=== PATIENT | female | born 1955 | race Caucasian/White ===

== ENCOUNTER → 2020-11-01 | Day surgery (SDC) | payer OTHER ==
[~2020-11-01] MED LIST: BREO ELLIPTA 11 EACH INH; COMBIVENT RESPIM4 GM INH; CRESTOR5 MG PO; DICLO GEL 1%-X1 EACH TOP; EZETIMIBE10 MG PO; FENOFIBRATE54 MG PO; FLONASE ALLER15.8 ML; GABAPENTIN600 MG PO; LEVOTHYROXINE200 MC1 PO; MONTELUKAST SOD10 MG PO; NORCO 10-325 T1 EACH PO; NORCO 5-325 TA1 EACH PO; ONDANSETRON ODT8 MG PO; SYNTHROID200 MCG PO; VITAMIN D32000 UNI1 PO
[2020-11-01 08:33] LABS: HCT 40.3 % (37.0-47.0); HGB 13.5 g/dl (12.5-16.0); MCH 29.2 pg (25.0-31.0); MCHC 33.5 g/dL (32.0-36.0); MCV 87.2 fL (78.0-100.0); MPV 10.1 fL (6.0-9.5); RBC 4.62 M/uL (4.20-5.40); WBC 5.8 K/uL (4.0-10.5)
[2020-11-01 08:41] LABS: ALBUMIN 3.9 g/dL (3.4-5.0); BILIRUBIN - TOTAL 0.7 mg/dL (0.2-1.0); CREATININE 0.61 mg/dL (0.51-0.95); GLOBULIN (CALCULATION) 4.1 g/dL; POTASSIUM 4.1 mmol/L (3.5-5.1)
== END | disposition home or self-care (01) ==
LOC: FAS 07:01
PROVIDERS: Surgery
DX: K81.1 Chronic cholecystitis (principal); K74.60 Unspecified cirrhosis of liver; K75.81 Nonalcoholic steatohepatitis (NASH); K82.0 Obstruction of gallbladder; K82.8 Other specified diseases of gallbladder; I25.10 Atherosclerotic heart disease of native coronary artery without angina pectoris; J44.9 Chronic obstructive pulmonary disease, unspecified; E78.5 Hyperlipidemia, unspecified; I10 Essential (primary) hypertension; K21.9 Gastro-esophageal reflux disease without esophagitis; E11.9 Type 2 diabetes mellitus without complications; F41.9 Anxiety disorder, unspecified; M19.90 Unspecified osteoarthritis, unspecified site; F32.9 Major depressive disorder, single episode, unspecified; M81.0 Age-related osteoporosis without current pathological fracture; G47.30 Sleep apnea, unspecified; E03.9 Hypothyroidism, unspecified; F17.210 Nicotine dependence, cigarettes, uncomplicated; Z99.89 Dependence on other enabling machines and devices; Z79.899 Other long term (current) drug therapy
CPT/HCPCS: 36415; 80053; 93005; C1758; J1170; J2250; J2405; J2704; J2710; J3010; J7120; Q9967

== ENCOUNTER 2021-02-09 09:53 | Emergency (ER) | payer OTHER ==
[2021-02-09 10:20] LABS: BASOPHIL 0.8 % (0-2); EOSINOPHIL 2.3 % (0-5); HCT 42.7 % (37.0-47.0); HGB 14.2 g/dl (12.5-16.0); LYMPHOCYTE 17.4 % (15-48); MCH 29.5 pg (25.0-31.0); MCHC 33.3 g/dL (32.0-36.0); MCV 88.8 fL (78.0-100.0); MONOCYTE 6.8 % (0-12); NEUTROPHIL 72.4 % (41-80); NRBC 0; PLT 182 K/uL (150-400); RBC 4.81 M/uL (4.20-5.40); RDW 14.2 % (11.5-14.0); WBC 6.2 K/uL (4.0-10.5)
[2021-02-09 10:24] LABS: INR 1.15 (0.9-1.2)
[2021-02-09 10:25] LABS: PTT 38.3 SECONDS (22.2-34.7)
[2021-02-09 10:36] LABS: BILIRUBIN NEGATIVE (NEGATIVE); BLOOD NEGATIVE Ery/uL (NEGATIVE); CLARITY CLEAR (CLEAR); COLOR YELLOW (YELLOW); GLUCOSE (U) NORMAL (NORMAL); LEUKOCYTES NEGATIVE Leu/uL (NEGATIVE); NITRITE NEGATIVE (NEGATIVE); PROTEIN NEGATIVE (NEGATIVE)
[2021-02-09 11:01] LABS: ALBUMIN 3.8 g/dL (3.4-5.0); BILIRUBIN - TOTAL 0.9 mg/dL (0.2-1.0); CREATININE 0.71 mg/dL (0.51-0.95); GLOBULIN (CALCULATION) 4.3 g/dL; POTASSIUM 3.8 mmol/L (3.5-5.1); TOTAL PROTEIN 8.1 g/dL (6.4-8.2)
[2021-02-09 13:57] LABS: WBC (FLUID) 945 WBC/uL
[2021-02-09 14:31] LABS: CLARITY (FLUID) CLEAR; COLOR (FLUID) YELLOW; RBC (FLUID) 1000 RBC/uL
== END 2021-02-09 15:20 | disposition home or self-care (01) ==
LOC: FER 09:53
PROVIDERS: Emergency Medicine
DX: R18.8 Other ascites (principal); R91.1 Solitary pulmonary nodule; J44.9 Chronic obstructive pulmonary disease, unspecified; F17.210 Nicotine dependence, cigarettes, uncomplicated; Z90.49 Acquired absence of other specified parts of digestive tract; Z87.19 Personal history of other diseases of the digestive system; Z98.890 Other specified postprocedural states
CPT/HCPCS: 36415; 71260; 74022; 80053; 81003; 85025; 85610; 85730; 87070; 88305; 89051; 94640; J2270; J2405; P9046; Q9967

== ENCOUNTER 2021-04-08 21:24 | Emergency (ER) | payer OTHER ==
[2021-04-08 22:41] LABS: EOSINOPHIL 2.2 % (0-5); HCT 43.3 % (37.0-47.0); HGB 14.3 g/dl (12.5-16.0); LYMPHOCYTE 21.7 % (15-48); MCH 28.9 pg (25.0-31.0); MCV 87.5 fL (78.0-100.0); MONOCYTE 10.7 % (0-12); MPV 10.1 fL (6.0-9.5); NEUTROPHIL 64.2 % (41-80); NRBC 0; PLT 162 K/uL (150-400); RBC 4.95 M/uL (4.20-5.40); RDW 13.7 % (11.5-14.0); WBC 5.8 K/uL (4.0-10.5)
[2021-04-08 23:01] LABS: BILIRUBIN - TOTAL 0.5 mg/dL (0.2-1.0); BUN/CREAT RATIO (CALC) 13.5 RATIO; CREATININE 0.89 mg/dL (0.51-0.95); GLOBULIN (CALCULATION) 4.6 g/dL; POTASSIUM 4.2 mmol/L (3.5-5.1); TOTAL PROTEIN 8.6 g/dL (6.4-8.2)
[2021-04-08 23:02] LABS: INR 1.42 (0.9-1.2); PRO-BNP 82 pg/mL (<125); PROTHROMBIN TIME 16.6 SECONDS (11.8-13.4)
[2021-04-08 23:03] LABS: PTT 38.7 SECONDS (24.4-34.7)
[2021-04-08 23:06] LABS: LACTIC ACID 1.2 mmol/L (0.4-1.9)
[2021-04-08 23:56] LABS: D-DIMER > 20.00 ug/mLFEU (0.00-0.41)
[2021-04-19] MEDS ORDERED: LASIX40 MG PO (12:10)
[2021-04-19] MEDS ORDERED: XARELTO10 MG PO (12:11)
[2021-04-19] MEDS ORDERED: ALDACTONE50 MG PO (12:11)
[2021-04-20] MEDS ORDERED: ULTRAM50 MG PO (12:58)
== END 2021-04-09 20:41 | disposition other institution (70) ==
LOC: FER 21:24
PROVIDERS: Emergency Medicine Emergency Medical Services
DX: R91.8 Other nonspecific abnormal finding of lung field (principal); I26.99 Other pulmonary embolism without acute cor pulmonale; R18.8 Other ascites; I51.9 Heart disease, unspecified; J44.9 Chronic obstructive pulmonary disease, unspecified; I10 Essential (primary) hypertension; F17.210 Nicotine dependence, cigarettes, uncomplicated; Z90.49 Acquired absence of other specified parts of digestive tract; Z20.822 Contact with and (suspected) exposure to COVID-19; K74.60 Unspecified cirrhosis of liver; K76.6 Portal hypertension; Z79.01 Long term (current) use of anticoagulants; Z79.82 Long term (current) use of aspirin; Z79.891 Long term (current) use of opiate analgesic; Z79.899 Other long term (current) drug therapy
CPT/HCPCS: 36415; 36600; 71045; 71275; 80053; 82803; 83605; 83880; 84484; 85025; 85379; 85610; 85730; 87040; 93005; 94640; 94664; J2930; Q9967; U0002

== ENCOUNTER → 2021-04-20 | Day surgery (SDC) | payer OTHER ==
[~2021-04-20] VITALS: Ht 165.1 cm; Wt 85.7 kg
[~2021-04-20] MED LIST changes: +ALDACTONE50 MG PO; +LASIX40 MG PO; +ULTRAM50 MG PO; +XARELTO10 MG PO
[2021-04-20 11:42] LABS: INR 1.2 (0.9-1.2); PROTHROMBIN TIME 14.6 SECONDS (11.8-13.4); PTT 34.3 SECONDS (24.4-34.7)
== END | disposition home or self-care (01) ==
LOC: FAS 10:40
PROVIDERS: Student in an Organized Health Care Education/Training Program
DX: C34.90 Malignant neoplasm of unspecified part of unspecified bronchus or lung (principal); K74.60 Unspecified cirrhosis of liver; I10 Essential (primary) hypertension; E11.9 Type 2 diabetes mellitus without complications; I25.10 Atherosclerotic heart disease of native coronary artery without angina pectoris; J44.9 Chronic obstructive pulmonary disease, unspecified; K21.9 Gastro-esophageal reflux disease without esophagitis; F41.9 Anxiety disorder, unspecified; E55.9 Vitamin D deficiency, unspecified; M19.90 Unspecified osteoarthritis, unspecified site; G47.00 Insomnia, unspecified; F32.9 Major depressive disorder, single episode, unspecified; M85.80 Other specified disorders of bone density and structure, unspecified site; M54.30 Sciatica, unspecified side; J30.9 Allergic rhinitis, unspecified; F17.210 Nicotine dependence, cigarettes, uncomplicated; Z79.51 Long term (current) use of inhaled steroids; Z79.01 Long term (current) use of anticoagulants; Z79.899 Other long term (current) drug therapy; Z90.710 Acquired absence of both cervix and uterus; Z98.51 Tubal ligation status
CPT/HCPCS: 36415; 71045; 76000; 85610; 85730; C1788; J0690; J1644; J2001; J2704; J3010; J7120

== ENCOUNTER 2021-06-10 21:45 | Inpatient (IN) | payer OTHER ==
[~2021-06-10] VITALS: Ht 165.1 cm; Wt 81.3 kg
[2021-06-10 22:03] LABS: BASOPHIL 0.4 % (0-2); EOSINOPHIL 0 % (0-5); HCT 31.3 % (37.0-47.0); HGB 10.7 g/dl (12.5-16.0); LYMPHOCYTE 6.2 % (15-48); MCH 30.3 pg (25.0-31.0); MCHC 34.2 g/dL (32.0-36.0); MCV 88.7 fL (78.0-100.0); MONOCYTE 0.5 % (0-12); MPV 9.8 fL (6.0-9.5); NRBC 0; PLT 138 K/uL (150-400); RBC 3.53 M/uL (4.20-5.40); RDW 16.3 % (11.5-14.0); WBC 9.2 K/uL (4.0-10.5)
[2021-06-10 22:06] LABS: NEUTROPHIL 87.8 % (41-80)
[2021-06-10 22:21] LABS: BILIRUBIN 1+ mg/dL (NEGATIVE); BLOOD NEGATIVE Ery/uL (NEGATIVE); CLARITY CLEAR (CLEAR); COLOR YELLOW (YELLOW); GLUCOSE (U) NORMAL (NORMAL); LEUKOCYTES NEGATIVE Leu/uL (NEGATIVE); NITRITE NEGATIVE (NEGATIVE); PROTEIN NEGATIVE (NEGATIVE)
[2021-06-10 22:22] LABS: ALBUMIN 3.1 g/dL (3.4-5.0); BILIRUBIN - TOTAL 1.6 mg/dL (0.2-1.0); BUN/CREAT RATIO (CALC) 25.5 RATIO; CREATININE 0.94 mg/dL (0.51-0.95); GLOBULIN (CALCULATION) 4.1 g/dL; POTASSIUM 4.1 mmol/L (3.5-5.1); TOTAL PROTEIN 7.2 g/dL (6.4-8.2)
[2021-06-11 00:14] LABS: RBC (FLUID) 3000 RBC/uL; WBC (FLUID) 259 WBC/uL
[2021-06-11 00:15] LABS: CLARITY (FLUID) CLOUDY; COLOR (FLUID) YELLOW
[2021-06-11 07:07] LABS: BASOPHIL 0.5 % (0-2); EOSINOPHIL 0 % (0-5); HGB 8.1 g/dl (12.5-16.0); LYMPHOCYTE 11.5 % (15-48); MCH 30.1 pg (25.0-31.0); MCHC 33.8 g/dL (32.0-36.0); MCV 89.2 fL (78.0-100.0); MONOCYTE 0.8 % (0-12); MPV 9.9 fL (6.0-9.5); NEUTROPHIL 81.7 % (41-80); NRBC 0; PLT 71 K/uL (150-400); RBC 2.69 M/uL (4.20-5.40); RDW 16.4 % (11.5-14.0)
[2021-06-11 07:35] LABS: BUN/CREAT RATIO (CALC) 28.6 RATIO; CREATININE 0.84 mg/dL (0.51-0.95); MAGNESIUM 1.6 mg/dL (1.8-2.4)
[2021-06-13 06:01] LABS: BASOPHIL 0.8 % (0-2); EOSINOPHIL 0.8 % (0-5); HCT 22.2 % (37.0-47.0); HGB 7.6 g/dl (12.5-16.0); LYMPHOCYTE 28.7 % (15-48); MCHC 34.2 g/dL (32.0-36.0); MCV 87.7 fL (78.0-100.0); MONOCYTE 5.7 % (0-12); NEUTROPHIL 63.2 % (41-80); NRBC 0; RBC 2.53 M/uL (4.20-5.40); RDW 15.5 % (11.5-14.0)
[2021-06-13 06:20] LABS: BUN/CREAT RATIO (CALC) 19.8 RATIO; CREATININE 0.86 mg/dL (0.51-0.95); POTASSIUM 4.2 mmol/L (3.5-5.1)
[2021-06-13 06:43] LABS: PLT 32 K/uL (150-400); WBC 1.2 K/uL (4.0-10.5)
[2021-06-14 06:58] LABS: BASOPHIL 1.7 % (0-2); EOSINOPHIL 0.9 % (0-5); HCT 21.7 % (37.0-47.0); HGB 7.6 g/dl (12.5-16.0); LYMPHOCYTE 28.2 % (15-48); MCH 30.3 pg (25.0-31.0); MCV 86.5 fL (78.0-100.0); MONOCYTE 6.8 % (0-12); MPV 11.4 fL (6.0-9.5); NEUTROPHIL 59.8 % (41-80); NRBC 0; RBC 2.51 M/uL (4.20-5.40); RDW 15.1 % (11.5-14.0)
[2021-06-14 07:07] LABS: INR 1.13 (0.9-1.2); PROTHROMBIN TIME 13.9 SECONDS (11.8-13.4)
[2021-06-14 07:30] LABS: ALBUMIN 2.9 g/dL (3.4-5.0); BILIRUBIN - TOTAL 0.5 mg/dL (0.2-1.0); BUN/CREAT RATIO (CALC) 18.2 RATIO; CREATININE 0.88 mg/dL (0.51-0.95); GLOBULIN (CALCULATION) 3.7 g/dL; TOTAL PROTEIN 6.6 g/dL (6.4-8.2)
[2021-06-14 08:07] LABS: WBC 1.2 K/uL (4.0-10.5)
[2021-06-14 08:08] LABS: PLT 18 K/uL (150-400)
[2021-06-15 07:12] LABS: BASOPHIL 1.4 % (0-2); EOSINOPHIL 0 % (0-5); HGB 6.9 g/dl (12.5-16.0); LYMPHOCYTE 39.1 % (15-48); MCHC 34.5 g/dL (32.0-36.0); MONOCYTE 7.2 % (0-12); MPV 11.3 fL (6.0-9.5); NEUTROPHIL 52.3 % (41-80); NRBC 0; RDW 15.1 % (11.5-14.0)
[2021-06-15 07:22] LABS: BUN/CREAT RATIO (CALC) 21.6 RATIO; CREATININE 0.88 mg/dL (0.51-0.95); POTASSIUM 4.2 mmol/L (3.5-5.1)
[2021-06-15 07:23] LABS: PLT 10 K/uL (150-400); WBC 0.7 K/uL (4.0-10.5)
[2021-06-16 05:07] LABS: BASOPHIL 1.9 % (0-2); EOSINOPHIL 1.9 % (0-5); HCT 17.8 % (37.0-47.0); LYMPHOCYTE 51.9 % (15-48); MCH 30.3 pg (25.0-31.0); MCHC 35.4 g/dL (32.0-36.0); MCV 85.6 fL (78.0-100.0); MONOCYTE 16.7 % (0-12); MPV 11.2 fL (6.0-9.5); NRBC 0; RBC 2.08 M/uL (4.20-5.40); RDW 15.1 % (11.5-14.0)
[2021-06-16 05:09] LABS: HGB 6.3 g/dl (12.5-16.0); WBC 0.5 K/uL (4.0-10.5)
[2021-06-16 05:10] LABS: NEUTROPHIL 25.7 % (41-80); PLT 17 K/uL (150-400)
[2021-06-17 09:42] LABS: BASOPHIL 1.3 % (0-2); EOSINOPHIL 3.8 % (0-5); HGB 7.3 g/dl (12.5-16.0); LYMPHOCYTE 40.5 % (15-48); MCH 30.7 pg (25.0-31.0); MCHC 34.8 g/dL (32.0-36.0); MCV 88.2 fL (78.0-100.0); MONOCYTE 29.1 % (0-12); MPV 11.6 fL (6.0-9.5); NRBC 0; RBC 2.38 M/uL (4.20-5.40); RDW 15.3 % (11.5-14.0)
[2021-06-17 09:58] LABS: ALBUMIN 2.7 g/dL (3.4-5.0); BILIRUBIN - TOTAL 0.5 mg/dL (0.2-1.0); BUN/CREAT RATIO (CALC) 22.8 RATIO; CREATININE 0.79 mg/dL (0.51-0.95); GLOBULIN (CALCULATION) 3.4 g/dL; POTASSIUM 3.7 mmol/L (3.5-5.1); TOTAL PROTEIN 6.1 g/dL (6.4-8.2)
[2021-06-17 10:05] LABS: WBC 0.8 K/uL (4.0-10.5)
[2021-06-17 10:06] LABS: PLT 14 K/uL (150-400)
[2021-06-18 07:21] LABS: BASOPHIL 1.6 % (0-2); EOSINOPHIL 1.4 % (0-5); HCT 26.9 % (37.0-47.0); HGB 9.2 g/dl (12.5-16.0); LYMPHOCYTE 10.2 % (15-48); MCH 29.7 pg (25.0-31.0); MCHC 34.2 g/dL (32.0-36.0); MCV 86.8 fL (78.0-100.0); MPV 11.8 fL (6.0-9.5); NEUTROPHIL 50.8 % (41-80); NRBC 0.5; RDW 15.3 % (11.5-14.0)
[2021-06-18 07:29] LABS: PLT 17 K/uL (150-400); WBC 4.4 K/uL (4.0-10.5)
[2021-06-18 07:37] LABS: BUN/CREAT RATIO (CALC) 18.5 RATIO; CREATININE 0.81 mg/dL (0.51-0.95); MAGNESIUM 1.4 mg/dL (1.8-2.4); POTASSIUM 3.9 mmol/L (3.5-5.1)
[2021-06-18] MEDS ORDERED: CRESTOR10 MG PO (10:18)
[2021-06-18] MEDS ORDERED: SINGULAIR10 MG PO (10:19)
[2021-06-18] MEDS ORDERED: LASIX40 MG PO (10:19)
[2021-06-18] MEDS ORDERED: SYNTHROID100 MCG PO (10:19)
[2021-06-18] MEDS ORDERED: ALDACTONE100 MG PO (10:19)
[2021-06-18] MEDS ORDERED: NEURONTIN300 MG PO (10:20)
[2021-06-18] MEDS ORDERED: HYDROCODON-ACE1 EAC6 PO (10:25)
[2021-06-18] MEDS ORDERED: SYNTHROID200 MCG PO (10:27)
[2021-06-18] MEDS ORDERED: CIPRO500 MG PO (10:29)
== END 2021-06-18 11:40 | disposition home or self-care (01) | DRG 371 ==
LOC: FER 21:45 → FMS 06-11 01:28
PROVIDERS: Allergy & Immunology; Emergency Medicine; Internal Medicine; Nurse Practitioner; ADMIT Internal Medicine
PROC: 0W9G3ZZ Drainage of Peritoneal Cavity, Percutaneous Approach (ICD-10-PCS; 2021-06-11)
PROC: 30233R1 Transfusion of Nonautologous Platelets into Peripheral Vein, Percutaneous Approach (ICD-10-PCS; principal; 2021-06-15)
PROC: 30233N1 Transfusion of Nonautologous Red Blood Cells into Peripheral Vein, Percutaneous Approach (ICD-10-PCS; 2021-06-16)
PROC: 30233N1 Transfusion of Nonautologous Red Blood Cells into Peripheral Vein, Percutaneous Approach (ICD-10-PCS; 2021-06-17)
DX: K65.2 Spontaneous bacterial peritonitis (principal); D61.810 Antineoplastic chemotherapy induced pancytopenia; R18.8 Other ascites; C34.90 Malignant neoplasm of unspecified part of unspecified bronchus or lung; C79.89 Secondary malignant neoplasm of other specified sites; K76.6 Portal hypertension; T45.1X5A Adverse effect of antineoplastic and immunosuppressive drugs, initial encounter; K74.60 Unspecified cirrhosis of liver; Z20.822 Contact with and (suspected) exposure to COVID-19; F17.200 Nicotine dependence, unspecified, uncomplicated; I10 Essential (primary) hypertension; E11.9 Type 2 diabetes mellitus without complications; E03.9 Hypothyroidism, unspecified; K21.9 Gastro-esophageal reflux disease without esophagitis; F41.9 Anxiety disorder, unspecified; F32.A Depression, unspecified; K75.81 Nonalcoholic steatohepatitis (NASH); G40.909 Epilepsy, unspecified, not intractable, without status epilepticus; G47.33 Obstructive sleep apnea (adult) (pediatric); J45.909 Unspecified asthma, uncomplicated; Z90.710 Acquired absence of both cervix and uterus; Z98.890 Other specified postprocedural states; Z90.49 Acquired absence of other specified parts of digestive tract; Z80.0 Family history of malignant neoplasm of digestive organs; Z79.01 Long term (current) use of anticoagulants; Z79.82 Long term (current) use of aspirin; Z79.890 Hormone replacement therapy; Z79.899 Other long term (current) drug therapy
CPT/HCPCS: 36415; 36430; 77386; 80048; 80053; 81003; 83605; 83690; 83735; 85025; 85610; 86850; 86900; 86901; 86922; 87040; 87070; 89051; 94010; 96374; 96375; J0696; J0713; J1170; J1447; J1642; J2405; P9016; P9035; Q9967; U0002

== ENCOUNTER 2021-07-20 16:38 | Emergency (ER) | payer OTHER ==
[~2021-07-20 16:38] MED LIST changes: +ALDACTONE100 MG PO; +CIPRO500 MG PO; +CRESTOR10 MG PO; +HYDROCODON-ACE1 EAC6 PO; +NEURONTIN300 MG PO; +SINGULAIR10 MG PO; +SYNTHROID100 MCG PO
[2021-07-20 18:17] LABS: BASOPHIL 0.7 % (0-2); EOSINOPHIL 0.1 % (0-5); HCT 27.6 % (37.0-47.0); LYMPHOCYTE 8.9 % (15-48); MCH 31.6 pg (25.0-31.0); MCHC 32.6 g/dL (32.0-36.0); MCV 96.8 fL (78.0-100.0); MONOCYTE 14.1 % (0-12); MPV 9.4 fL (6.0-9.5); NEUTROPHIL 75.3 % (41-80); NRBC 0.3; PLT 199 K/uL (150-400); RBC 2.85 M/uL (4.20-5.40); RDW 19.8 % (11.5-14.0); WBC 6.7 K/uL (4.0-10.5)
[2021-07-20 18:40] LABS: ALBUMIN 2.7 g/dL (3.4-5.0); BILIRUBIN - TOTAL 0.7 mg/dL (0.2-1.0); BUN/CREAT RATIO (CALC) 17.1 RATIO; CREATININE 1.17 mg/dL (0.51-0.95); GLOBULIN (CALCULATION) 3.9 g/dL; POTASSIUM 3.9 mmol/L (3.5-5.1); TOTAL PROTEIN 6.6 g/dL (6.4-8.2)
[2021-07-20 20:27] LABS: LACTIC ACID 1.4 mmol/L (0.4-1.9)
[2021-07-20 20:43] LABS: CORONAVIRUS 2019 SARS-COV-2 NEGATIVE (NEGATIVE); INFLUENZA A NAA NEGATIVE (NEGATIVE)
[2021-07-20 20:47] LABS: NEUTROPHILS(M) 79 % (41-80)
[2021-07-20 20:48] LABS: LYMPHOCYTE(M) 8 % (15-48); MONOCYTE(M) 13 % (0-12)
[2021-07-20 20:49] LABS: PLATELETS ON SMEAR ENLARGED; PRO-BNP 242 pg/mL (<125)
[2021-07-20 23:35] LABS: BILIRUBIN NEGATIVE (NEGATIVE); BLOOD NEGATIVE Ery/uL (NEGATIVE); CLARITY CLOUDY (CLEAR); COLOR YELLOW (YELLOW); GLUCOSE (U) NORMAL (NORMAL); LEUKOCYTES NEGATIVE Leu/uL (NEGATIVE); NITRITE NEGATIVE (NEGATIVE); PROTEIN NEGATIVE (NEGATIVE); SPECIFIC GRAVITY >=1.030 (1.001-1.030); UROBILINOGEN 0.2 mg/dL (0.2-1.0); pH 5.5 (5.0-9.0)
== END 2021-07-21 02:58 | disposition home or self-care (01) ==
LOC: FER 16:38
PROVIDERS: Emergency Medicine; Emergency Medicine Emergency Medical Services
DX: R18.8 Other ascites (principal); K74.60 Unspecified cirrhosis of liver; R53.1 Weakness; R19.7 Diarrhea, unspecified; I10 Essential (primary) hypertension; F17.210 Nicotine dependence, cigarettes, uncomplicated; Z20.822 Contact with and (suspected) exposure to COVID-19
CPT/HCPCS: 36415; 71045; 80053; 81003; 82140; 82150; 83605; 83690; 83880; 84484; 85025; 87040; 87088; 96374; 96375; J2270; J2405; P9046; U0002

== ENCOUNTER 2021-08-04 19:46 | Inpatient (IN) | payer OTHER ==
[~2021-08-04] VITALS: Ht 167.6 cm; Wt 105.0 kg
[2021-08-04 19:58] LABS: BASOPHIL 0.5 % (0-2); EOSINOPHIL 0.2 % (0-5); HCT 30.3 % (37.0-47.0); HGB 10.1 g/dl (12.5-16.0); LYMPHOCYTE 1.7 % (15-48); MCH 31.3 pg (25.0-31.0); MCHC 33.3 g/dL (32.0-36.0); MCV 93.8 fL (78.0-100.0); MONOCYTE 1.8 % (0-12); MPV 10.7 fL (6.0-9.5); NRBC 0; PLT 134 K/uL (150-400); RBC 3.23 M/uL (4.20-5.40); RDW 17.1 % (11.5-14.0); WBC 12.9 K/uL (4.0-10.5)
[2021-08-04 20:01] LABS: NEUTROPHIL 94.6 % (41-80)
[2021-08-04 20:16] LABS: ALBUMIN 1.7 g/dL (3.4-5.0); BILIRUBIN - TOTAL 0.8 mg/dL (0.2-1.0); CREATININE 1.36 mg/dL (0.51-0.95); GLOBULIN (CALCULATION) 4.1 g/dL; POTASSIUM 4.3 mmol/L (3.5-5.1); TOTAL PROTEIN 5.8 g/dL (6.4-8.2)
[2021-08-04 20:19] LABS: PRO-BNP 1327 pg/mL (<125)
[2021-08-04 20:47] LABS: INFLUENZA A NAA NEGATIVE (NEGATIVE)
[2021-08-04 20:48] LABS: CORONAVIRUS 2019 SARS-COV-2 POSITIVE (NEGATIVE)
[2021-08-05 05:20] LABS: BASOPHIL 0.6 % (0-2); EOSINOPHIL 0 % (0-5); HCT 26.9 % (37.0-47.0); HGB 8.9 g/dl (12.5-16.0); LYMPHOCYTE 1.7 % (15-48); MCHC 33.1 g/dL (32.0-36.0); MCV 96.8 fL (78.0-100.0); MONOCYTE 2.8 % (0-12); MPV 10.7 fL (6.0-9.5); NEUTROPHIL 92.7 % (41-80); NRBC 0; RBC 2.78 M/uL (4.20-5.40); RDW 17.1 % (11.5-14.0); WBC 5.4 K/uL (4.0-10.5)
[2021-08-05 05:29] LABS: PLT 81 K/uL (150-400)
[2021-08-05 05:36] LABS: ALBUMIN 1.4 g/dL (3.4-5.0); BILIRUBIN - TOTAL 0.7 mg/dL (0.2-1.0); BUN/CREAT RATIO (CALC) 30.4 RATIO; CREATININE 1.02 mg/dL (0.51-0.95); GLOBULIN (CALCULATION) 3.1 g/dL; POTASSIUM 4.4 mmol/L (3.5-5.1); TOTAL PROTEIN 4.5 g/dL (6.4-8.2)
[2021-08-06 05:54] LABS: BASOPHIL 0.3 % (0-2); EOSINOPHIL 0 % (0-5); HCT 22.6 % (37.0-47.0); HGB 7.2 g/dl (12.5-16.0); LYMPHOCYTE 2.7 % (15-48); MCH 31.4 pg (25.0-31.0); MCHC 31.9 g/dL (32.0-36.0); MCV 98.7 fL (78.0-100.0); MONOCYTE 3.9 % (0-12); MPV 9.8 fL (6.0-9.5); NEUTROPHIL 91.8 % (41-80); NRBC 0; RBC 2.29 M/uL (4.20-5.40); WBC 7.5 K/uL (4.0-10.5)
[2021-08-06 06:01] LABS: PLT 92 K/uL (150-400)
[2021-08-06 06:14] LABS: INR 1.39 (0.9-1.2); PROTHROMBIN TIME 16.4 SECONDS (11.8-13.4)
[2021-08-06 06:52] LABS: BILIRUBIN - TOTAL 0.8 mg/dL (0.2-1.0); BUN/CREAT RATIO (CALC) 35.2 RATIO; CREATININE 0.88 mg/dL (0.51-0.95); GLOBULIN (CALCULATION) 2.4 g/dL; TOTAL PROTEIN 5.4 g/dL (6.4-8.2)
--- NOTE | 2021-08-06 18:42 | NUR ---
[address] MARCUS. PERMIT SIGNED AND TIME OUT BEFORE PROCEDURE COMPLETED. PUNCTURE MADE AND CATHETER INSERTED BY DR. MARCUS. ATTACHED TO WALL SUCTION. 12,200 MLS OF CLEAR YELLOW FLUID RETURNED. BANDAID PUT ON SITE, CONTINUED TO OOZE CLEAR YELLOW FLUID. ALLEVYN PUT ON SITE.
[2021-08-06 23:21] LABS: BUN/CREAT RATIO (CALC) 40.5 RATIO; CREATININE 0.84 mg/dL (0.51-0.95); POTASSIUM 3.9 mmol/L (3.5-5.1)
[2021-08-06 23:26] LABS: VANCOMYCIN, TROUGH 30.3 ug/mL (10-20)
--- NOTE | 2021-08-07 00:32 | NUR ---
220 PATIENT 02 DROPPED TO THE 70'S UPON ENTERING THE ROOM THE PATIENT WAS INCREASINGLY CONFUSED UNABLE TO FOLLOW COMMANDS. NON REBREATHER PLACED ON PATIENT O2 INCREASED TO 100%. NOTIFIED NEW ORDERS RECIEVED, ABG, BLOOD GLUCOSE AND LABS OBTAINED. PATIENT STILL SLIGHTLY CONFUSED WILL CONT TO MONITIOR.
[2021-08-07 06:06] LABS: BASOPHIL 0.2 % (0-2); EOSINOPHIL 0 % (0-5); HCT 22.6 % (37.0-47.0); HGB 7.2 g/dl (12.5-16.0); MCH 31.6 pg (25.0-31.0); MCHC 31.9 g/dL (32.0-36.0); MCV 99.1 fL (78.0-100.0); MONOCYTE 5.4 % (0-12); MPV 10.7 fL (6.0-9.5); NEUTROPHIL 88.9 % (41-80); NRBC 0; PLT 79 K/uL (150-400); RBC 2.28 M/uL (4.20-5.40); RDW 17.8 % (11.5-14.0); WBC 5.2 K/uL (4.0-10.5)
[2021-08-07 07:12] LABS: BUN/CREAT RATIO (CALC) 38.8 RATIO; CREATININE 0.85 mg/dL (0.51-0.95); POTASSIUM 4.1 mmol/L (3.5-5.1)
--- NOTE | 2021-08-07 17:19 | NUR ---
08/07 Social hx taken from previous social assessments. Ms. Florian lives alone. Her sister lives near by. She has a s. chair, 3in1, and rw. She uses [employer] for transportation to medical appointments. - Ms. Florian is followed at [facility]. - She is currently on a ventilator. - Will monitor for needs.
--- NOTE | 2021-08-07 20:19 | NUR ---
1100 MENTAL STATUS CHANGE. PATIENT WOULD NOT FOLLOW COMMANDS OR RESPOND TO ANY QUESTIONS. STARRED OFF IN A DAZE. DR NOTIFIED OF CHANGE. PATIENT BEGAN TO TAKE MASK OFF AND O2 SAT DROPPED TO 60%. OTHER STAFF WAS CALLED TO ASSIST PATIENT WOULD NOT FOLLOW COMMANDS OR LEAVE O2 MASK OF ANY KIND ON FACE. NRB WAS HELD AND 2MG OF MORPHINE. DR ASSESSED PATIENT AND WITH VAPOTHERM AND NRB O2 SAT WAS ONLY 72%. DR ORDERED PATIENT TO BE INTUBATED AT THAT TIME. 1225-VERSED 1227 40 MG ROCRONIUM AND 20MG ETOMIDATE 1228-7.5 ET/24 LIP PLACED WITH ADEQUATE COLOR CHANGE VITAL:105/69 127 26 73% PATIENT BAGGED O2 IMPROVED 96% TIL PLACED ON VENT OG PLACED AND XRAY CONFIRMED OG AND ET PLACEMENT. VENT SETTINGS:A/C R26 P10 [id number]% TV400 VERSED-3/3ML LEVO-4MG/4ML 70/40 1 500ML BOLUS GIVEN TITRATE TO COMFORT RESTRAINTS WERE PLACED, SCD'S ON, HEEL PROTECTORS ON, HEAD OF BED 35DEGRESS, BEDDING WAS CHANGED FOR SON AND DAUGHTER TO COME VISIT PER AND LYNETTE MIGUEL. FAMILY WAS TOLD NO MORE VISITATION TIL PATIENT STATUS WORSENS OR END OF LIFE IS NEAR. ONLY ONE PERSON OF CONTACT-EDIE(SON). CRISELDA TRIED TO INSERT SUNITA WITH NO SUCCESS. PATIENT WAS COMFORTABLE AND PRESSURE WAS BEING MAINTAINED BUT STILL TITRATING
[2021-08-08 05:44] LABS: BASOPHIL 0.3 % (0-2); EOSINOPHIL 0.1 % (0-5); HCT 27.7 % (37.0-47.0); HGB 8.5 g/dl (12.5-16.0); LYMPHOCYTE 1.3 % (15-48); MCH 31.4 pg (25.0-31.0); MCHC 30.7 g/dL (32.0-36.0); MCV 102.2 fL (78.0-100.0); MONOCYTE 1.5 % (0-12); MPV 11.1 fL (6.0-9.5); NEUTROPHIL 95.3 % (41-80); NRBC 0; PLT 153 K/uL (150-400); RBC 2.71 M/uL (4.20-5.40); RDW 18.4 % (11.5-14.0)
[2021-08-08 06:10] LABS: WBC 30.1 K/uL (4.0-10.5)
[2021-08-08 06:32] LABS: BUN/CREAT RATIO (CALC) 31.9 RATIO; CREATININE 1.13 mg/dL (0.51-0.95); POTASSIUM 4.7 mmol/L (3.5-5.1)
--- NOTE | 2021-08-08 10:00 | NUR ---
ASSISTED DR. ABURTO IN ATTEMPT TO ULTRASOUND GUIDED RIGHT FEMORAL ARTERIAL LINE PLACMEMENT. SEVERAL ATTEMPTS WERE MADE BUT GUIDE WIRE WOULD NOT PASS THROUGH. HEMATOMA NOTED TO RIGHT GROIN. PRESSURE HELD AND DRESSING APPLIED AFTER MD STOPPED PROCEDURE. VSS THROUGHOUT WHOLE PROCEDURE. NO DISTRESS NOTED. WILL MONITOR.
--- NOTE | 2021-08-08 16:15 | NUR ---
NOTIFIED MD THAT PT WAS HAVING BIGEMENY RUNS AND SMALL RUNS OF WHAT LOOKED TO BE VTACH OR POSSIBLE AFIB AFTER WE PRONED PT. MD STATED TO MONITOR. 1650 NOTIFIED MD THAT PT CONTINUED TO HAVE THIS IRREGULAR RHYTHM. MD STATED HE WOULD BE OVER TO CHECK ON PT. 1700 PT HAD SUSTAINED VTACH AND RAPID RESPONSE WAS INITIATED. PT WAS UNPRONED AT THIS TIME. LABS DRAWN, 1ML ESMOLOL GIVEN BY DR. ABURTO. VSS STABLE ONCE PT TURNED SUPINE.
[2021-08-08 18:29] LABS: MCH 31.4 pg (25.0-31.0); MCHC 31.4 g/dL (32.0-36.0); MPV 11.9 fL (6.0-9.5); RBC 2.2 M/uL (4.20-5.40); RDW 18.6 % (11.5-14.0); WBC 8.9 K/uL (4.0-10.5)
[2021-08-08 18:49] LABS: HGB 6.9 g/dl (12.5-16.0)
[2021-08-08 19:03] LABS: BUN/CREAT RATIO (CALC) 29.8 RATIO; CREATININE 1.24 mg/dL (0.51-0.95); MAGNESIUM 2.1 mg/dL (1.8-2.4); POTASSIUM 4.8 mmol/L (3.5-5.1)
[2021-08-09 06:15] LABS: BASOPHIL 0.1 % (0-2); EOSINOPHIL 0 % (0-5); HCT 20.6 % (37.0-47.0); HGB 6.6 g/dl (12.5-16.0); LYMPHOCYTE 2.6 % (15-48); MCV 96.7 fL (78.0-100.0); MONOCYTE 2.2 % (0-12); MPV 11.3 fL (6.0-9.5); NRBC 0; PLT 82 K/uL (150-400); RBC 2.13 M/uL (4.20-5.40); RDW 18.1 % (11.5-14.0); WBC 11.9 K/uL (4.0-10.5)
--- NOTE | 2021-08-09 06:44 | NUR ---
08/08/21 2315-PT HEART RATE NOTED TO INCREASE FROM 100'S TO 150'S-170'S AFIB. B/P MAINTAINING 100-110'S/50-60'S. LEVOPHED/DOPAMINE INFUSING. ORDERED TO D/C DOPAMINE AT THIS TIME AND INCREASE LEVOPHED. 2345-B/P 81/53. HR 130'S AFIB. 0.25MG DIG ORDERED. 08/09/21 0000-LEVOPHED INCREASED TO 24MCG/MIN. 0130-HR CONTINUES 120-130'S AFIB. CARDIZEM 10MG IVP ORDERED.
[2021-08-09 07:23] LABS: ALBUMIN 3.6 g/dL (3.4-5.0); BILIRUBIN - TOTAL 0.9 mg/dL (0.2-1.0); BUN/CREAT RATIO (CALC) 29.2 RATIO; CREATININE 1.44 mg/dL (0.51-0.95); GLOBULIN (CALCULATION) 2.4 g/dL; MAGNESIUM 2.1 mg/dL (1.8-2.4); POTASSIUM 3.7 mmol/L (3.5-5.1)
[2021-08-09 07:40] LABS: NEUTROPHIL 94.1 % (41-80)
--- NOTE | 2021-08-09 13:19 | NUR ---
PT BAG OF CLOTHES, PURSE, DENTURES AND TENNIS SHOES GIVEN TO SON AND DAUGHTER IN LAW.
[2021-08-10 06:12] LABS: BASOPHIL 0.1 % (0-2); EOSINOPHIL 0 % (0-5); HCT 18.6 % (37.0-47.0); LYMPHOCYTE 2.6 % (15-48); MCH 31.1 pg (25.0-31.0); MCHC 32.8 g/dL (32.0-36.0); MCV 94.9 fL (78.0-100.0); MONOCYTE 2.4 % (0-12); MPV 12.3 fL (6.0-9.5); NEUTROPHIL 93.9 % (41-80); NRBC 0; PLT 44 K/uL (150-400); RBC 1.96 M/uL (4.20-5.40); RDW 17.4 % (11.5-14.0); WBC 7.2 K/uL (4.0-10.5)
[2021-08-10 06:34] LABS: HGB 6.1 g/dl (12.5-16.0)
[2021-08-10 06:53] LABS: BILIRUBIN - TOTAL 0.5 mg/dL (0.2-1.0); BUN/CREAT RATIO (CALC) 28.4 RATIO; CREATININE 1.62 mg/dL (0.51-0.95); GLOBULIN (CALCULATION) 2.4 g/dL; MAGNESIUM 2.1 mg/dL (1.8-2.4); PHOSPHORUS 2.4 mg/dL (2.6-4.7); POTASSIUM 3.6 mmol/L (3.5-5.1); TOTAL PROTEIN 5.4 g/dL (6.4-8.2)
[2021-08-10 19:13] LABS: URINE CREATININE 35.24 mg/dL (29.00-226.00)
[2021-08-11 05:22] LABS: BASOPHIL 0.1 % (0-2); EOSINOPHIL 0 % (0-5); HCT 26.7 % (37.0-47.0); LYMPHOCYTE 1.4 % (15-48); MCH 32.3 pg (25.0-31.0); MCHC 34.1 g/dL (32.0-36.0); MCV 94.7 fL (78.0-100.0); MONOCYTE 2.8 % (0-12); MPV 12.7 fL (6.0-9.5); NEUTROPHIL 94.8 % (41-80); NRBC 0; RBC 2.82 M/uL (4.20-5.40); RDW 16.2 % (11.5-14.0)
[2021-08-11 05:29] LABS: HGB 9.1 g/dl (12.5-16.0); WBC 15.8 K/uL (4.0-10.5)
[2021-08-11 05:30] LABS: PLT 52 K/uL (150-400)
[2021-08-11 05:41] LABS: ALBUMIN 2.9 g/dL (3.4-5.0); BILIRUBIN - TOTAL 0.5 mg/dL (0.2-1.0); BUN/CREAT RATIO (CALC) 29.2 RATIO; CREATININE 1.92 mg/dL (0.51-0.95); GLOBULIN (CALCULATION) 2.7 g/dL; POTASSIUM 4.4 mmol/L (3.5-5.1); TOTAL PROTEIN 5.6 g/dL (6.4-8.2)
[2021-08-12 05:45] LABS: BASOPHIL 0.2 % (0-2); EOSINOPHIL 0 % (0-5); HCT 27.4 % (37.0-47.0); HGB 8.7 g/dl (12.5-16.0); LYMPHOCYTE 0.5 % (15-48); MCH 30.7 pg (25.0-31.0); MCHC 31.8 g/dL (32.0-36.0); MCV 96.8 fL (78.0-100.0); MONOCYTE 2.8 % (0-12); MPV 12.8 fL (6.0-9.5); NEUTROPHIL 95.8 % (41-80); NRBC 0; RBC 2.83 M/uL (4.20-5.40); RDW 16.1 % (11.5-14.0); WBC 18.8 K/uL (4.0-10.5)
[2021-08-12 05:46] LABS: PLT 50 K/uL (150-400)
[2021-08-12 06:16] LABS: ALBUMIN 2.9 g/dL (3.4-5.0); BILIRUBIN - TOTAL 0.6 mg/dL (0.2-1.0); BUN/CREAT RATIO (CALC) 28.7 RATIO; CREATININE 2.44 mg/dL (0.51-0.95); GLOBULIN (CALCULATION) 2.8 g/dL; POTASSIUM 5.1 mmol/L (3.5-5.1); TOTAL PROTEIN 5.7 g/dL (6.4-8.2)
[2021-08-13 04:35] LABS: BASOPHIL 0.1 % (0-2); EOSINOPHIL 0 % (0-5); HCT 24.5 % (37.0-47.0); HGB 7.8 g/dl (12.5-16.0); LYMPHOCYTE 0.4 % (15-48); MCH 31.6 pg (25.0-31.0); MCHC 31.8 g/dL (32.0-36.0); MCV 99.2 fL (78.0-100.0); MONOCYTE 2.2 % (0-12); MPV 13.7 fL (6.0-9.5); NRBC 0; RBC 2.47 M/uL (4.20-5.40); RDW 16.1 % (11.5-14.0); WBC 16.8 K/uL (4.0-10.5)
[2021-08-13 04:39] LABS: NEUTROPHIL 96.6 % (41-80); PLT 34 K/uL (150-400)
[2021-08-13 05:16] LABS: ALBUMIN 1.9 g/dL (3.4-5.0); BILIRUBIN - TOTAL 0.6 mg/dL (0.2-1.0); CREATININE 2.9 mg/dL (0.51-0.95); GLOBULIN (CALCULATION) 4.1 g/dL; MAGNESIUM 2.5 mg/dL (1.8-2.4); POTASSIUM 5.6 mmol/L (3.5-5.1)
--- NOTE | 2021-08-13 18:58 | NUR ---
1030 SEDATION VACATION TIL 1100 PT SATS DROPPED DOWN TO 87%.
[2021-08-14 04:44] LABS: BASOPHIL 0.1 % (0-2); EOSINOPHIL 0 % (0-5); HCT 21.6 % (37.0-47.0); HGB 7.1 g/dl (12.5-16.0); LYMPHOCYTE 0.4 % (15-48); MCH 32.1 pg (25.0-31.0); MCHC 32.9 g/dL (32.0-36.0); MCV 97.7 fL (78.0-100.0); MPV 12.7 fL (6.0-9.5); NRBC 0; RBC 2.21 M/uL (4.20-5.40); RDW 16.1 % (11.5-14.0); WBC 15.6 K/uL (4.0-10.5)
[2021-08-14 04:45] LABS: PLT 34 K/uL (150-400)
[2021-08-14 05:01] LABS: CREATININE 3.54 mg/dL (0.51-0.95); POTASSIUM 6.1 mmol/L (3.5-5.1)
[2021-08-14 05:16] LABS: MAGNESIUM 2.7 mg/dL (1.8-2.4)
[2021-08-14 14:51] LABS: HCT 24.7 % (37.0-47.0); HGB 8.2 g/dL (12.5-16.0)
[2021-08-14 15:10] LABS: CREATININE 3.76 mg/dL (0.51-0.95); POTASSIUM 6.3 mmol/L (3.5-5.1)
--- NOTE | 2021-08-14 19:26 | NUR ---
DR HILLIARD CALLED AND CHECKED ON PT, AFTER TELLING HIM HER LABS BUN 130. HE ORDERED BUMEX 4MG IV Q8HRS,METALOZONE 10MG NG BID,LOKELMA QDAY DR MARCUS WAS NOTIFIED AND HE SAID TO LEAVE [facility]
[2021-08-15 00:19] LABS: CREATININE 3.99 mg/dL (0.51-0.95); POTASSIUM 6.1 mmol/L (3.5-5.1)
[2021-08-15 05:59] LABS: BASOPHIL 0.1 % (0-2); EOSINOPHIL 0 % (0-5); HCT 24.8 % (37.0-47.0); HGB 8.2 g/dl (12.5-16.0); LYMPHOCYTE 0.4 % (15-48); MCH 31.7 pg (25.0-31.0); MCHC 33.1 g/dL (32.0-36.0); MCV 95.8 fL (78.0-100.0); MONOCYTE 3.5 % (0-12); NEUTROPHIL 95.1 % (41-80); NRBC 0; PLT 36 K/uL (150-400); RBC 2.59 M/uL (4.20-5.40); RDW 16.4 % (11.5-14.0); WBC 13.8 K/uL (4.0-10.5)
[2021-08-15 08:22] LABS: CREATININE 4.01 mg/dL (0.51-0.95); MAGNESIUM 2.9 mg/dL (1.8-2.4); PHOSPHORUS 7.7 mg/dL (2.6-4.7); POTASSIUM 6.3 mmol/L (3.5-5.1)
[2021-08-15 14:06] LABS: BILIRUBIN NEGATIVE (NEGATIVE); BLOOD 2+ Ery/uL (NEGATIVE); CLARITY CLEAR (CLEAR); COLOR YELLOW (YELLOW); GLUCOSE (U) NORMAL (NORMAL); LEUKOCYTES NEGATIVE Leu/uL (NEGATIVE); NITRITE NEGATIVE (NEGATIVE); PROTEIN 2+ mg/dL (NEGATIVE); UROBILINOGEN 0.2 mg/dL (0.2-1.0)
[2021-08-15 14:10] LABS: BACTERIA 3+; SQUAMOUS EPITHELIAL CELLS RARE
[2021-08-16 06:15] LABS: BASOPHIL 0.1 % (0-2); EOSINOPHIL 0 % (0-5); HCT 20.8 % (37.0-47.0); HGB 6.9 g/dl (12.5-16.0); LYMPHOCYTE 0.6 % (15-48); MCH 32.4 pg (25.0-31.0); MCHC 33.2 g/dL (32.0-36.0); MCV 97.7 fL (78.0-100.0); NEUTROPHIL 95.9 % (41-80); NRBC 0; RBC 2.13 M/uL (4.20-5.40); RDW 16.1 % (11.5-14.0); WBC 10.2 K/uL (4.0-10.5)
[2021-08-16 06:20] LABS: MPV 13.5 fL (6.0-9.5)
[2021-08-16 06:21] LABS: PLT 38 K/uL (150-400)
[2021-08-16 06:22] LABS: ALBUMIN 4.4 g/dL (3.4-5.0); BILIRUBIN - TOTAL 0.7 mg/dL (0.2-1.0); CREATININE 4.64 mg/dL (0.51-0.95); GLOBULIN (CALCULATION) 1.8 g/dL; TOTAL PROTEIN 6.2 g/dL (6.4-8.2)
[2021-08-16 06:25] LABS: POTASSIUM 6.7 mmol/L (3.5-5.1)
[2021-08-17 07:03] LABS: BASOPHIL 0.1 % (0-2); EOSINOPHIL 0 % (0-5); HCT 24.1 % (37.0-47.0); HGB 7.9 g/dl (12.5-16.0); LYMPHOCYTE 0.6 % (15-48); MCH 31.6 pg (25.0-31.0); MCHC 32.8 g/dL (32.0-36.0); MCV 96.4 fL (78.0-100.0); MONOCYTE 2.7 % (0-12); MPV 14.5 fL (6.0-9.5); NRBC 0; PLT 44 K/uL (150-400); RDW 15.9 % (11.5-14.0); WBC 11.5 K/uL (4.0-10.5)
[2021-08-17 07:05] LABS: ALBUMIN 4.7 g/dL (3.4-5.0); BILIRUBIN - TOTAL 0.9 mg/dL (0.2-1.0); CREATININE 5.1 mg/dL (0.51-0.95); GLOBULIN (CALCULATION) 2.3 g/dL
[2021-08-17 07:11] LABS: POTASSIUM 7.2 mmol/L (3.5-5.1)
[2021-08-17 07:36] LABS: NEUTROPHIL 96.1 % (41-80)
[2021-08-17 10:21] LABS: INR 1.21 (0.9-1.2); PROTHROMBIN TIME 14.7 SECONDS (11.8-13.4)
--- NOTE | 2021-08-17 14:20 | NUR ---
1240 PARACENTESIS STARTED, TIME OUT BY RN, AND US TECH. US GUIDED PARACENTESIS DONE BY DR. SULLIVAN. DRAINED BY SUCTION. RECEIVED 9750 MLS OF CLEAR YELLOW SECRETIONS. SMALL AMOUNT OF PINK DRAINAGE FROM SITE. COVERED WITH A BANDAID.
[2021-08-18 05:35] LABS: HCT 20.2 % (37.0-47.0); HGB 6.6 g/dl (12.5-16.0); MCH 31.6 pg (25.0-31.0); MCHC 32.7 g/dL (32.0-36.0); MCV 96.7 fL (78.0-100.0); MPV 14.9 fL (6.0-9.5); RBC 2.09 M/uL (4.20-5.40); RDW 16.2 % (11.5-14.0); WBC 8.5 K/uL (4.0-10.5)
[2021-08-18 06:08] LABS: ALBUMIN 4.2 g/dL (3.4-5.0); BILIRUBIN - TOTAL 0.8 mg/dL (0.2-1.0); CREATININE 5.59 mg/dL (0.51-0.95); TOTAL PROTEIN 6.2 g/dL (6.4-8.2)
[2021-08-18 06:13] LABS: POTASSIUM 7.2 mmol/L (3.5-5.1)
--- NOTE | 2021-08-18 20:24 | NUR ---
1400 NURSE AND dR. Hunter SPOKE TO FAMILY AT LENGTH ABOUT PATIENT CONDITION. SON TO COME IN TO DISCUSS COMFORT MEASURES AND EXTUBATION. 1630 FAMILY HER, VERBALIZED AN UNDERSTANDING OF COMFORT CARE AND THAT PATIENT WOULD MOST LIKELY . 1650 PATIENT EXTUBATED. 1735 PATIENT WITH FAMILY AND NURSE AT BEDSIDE
--- NOTE | 2021-08-18 20:33 | NUR ---
[facility] IN [place] CALLED, UNKNOWN ETA
== END 2021-08-18 21:38 | disposition expired | DRG 870 ==
LOC: FER 19:46 → FICU 21:17
PROVIDERS: Allergy & Immunology Allergy; Emergency Medicine; Hospitalist; Internal Medicine; Internal Medicine Nephrology; Nurse Practitioner; ADMIT Internal Medicine
PROC: XW033E5 Introduction of Remdesivir Anti-infective into Peripheral Vein, Percutaneous Approach, New Technology Group 5 (ICD-10-PCS; 2021-08-04)
PROC: 3E033XZ Introduction of Vasopressor into Peripheral Vein, Percutaneous Approach (ICD-10-PCS; 2021-08-04)
PROC: 05HY33Z Insertion of Infusion Device into Upper Vein, Percutaneous Approach (ICD-10-PCS; 2021-08-05)
PROC: XW0DXM6 Introduction of Baricitinib into Mouth and Pharynx, External Approach, New Technology Group 6 (ICD-10-PCS; 2021-08-05)
PROC: 8E0ZXY6 Isolation (ICD-10-PCS; 2021-08-05)
PROC: 0W9G3ZZ Drainage of Peritoneal Cavity, Percutaneous Approach (ICD-10-PCS; principal; 2021-08-06)
PROC: 5A1955Z Respiratory Ventilation, Greater than 96 Consecutive Hours (ICD-10-PCS; 2021-08-07)
PROC: 0BH17EZ Insertion of Endotracheal Airway into Trachea, Via Natural or Artificial Opening (ICD-10-PCS; 2021-08-07)
PROC: 30233N1 Transfusion of Nonautologous Red Blood Cells into Peripheral Vein, Percutaneous Approach (ICD-10-PCS; 2021-08-10)
PROC: 30233N1 Transfusion of Nonautologous Red Blood Cells into Peripheral Vein, Percutaneous Approach (ICD-10-PCS; 2021-08-10)
DX: A41.89 Other specified sepsis (principal); U07.1 COVID-19; J12.82 Pneumonia due to coronavirus disease 2019; R65.21 Severe sepsis with septic shock; D61.810 Antineoplastic chemotherapy induced pancytopenia; J15.9 Unspecified bacterial pneumonia; J80 Acute respiratory distress syndrome; N17.0 Acute kidney failure with tubular necrosis; K76.7 Hepatorenal syndrome; R18.8 Other ascites; C34.90 Malignant neoplasm of unspecified part of unspecified bronchus or lung; I47.2 Ventricular tachycardia; E87.1 Hypo-osmolality and hyponatremia; E87.2 Acidosis; Z66 Do not resuscitate; Z51.5 Encounter for palliative care; E87.5 Hyperkalemia; L89.152 Pressure ulcer of sacral region, stage 2; K72.90 Hepatic failure, unspecified without coma; K74.60 Unspecified cirrhosis of liver; I10 Essential (primary) hypertension; I48.0 Paroxysmal atrial fibrillation; F41.1 Generalized anxiety disorder; F32.A Depression, unspecified; K21.9 Gastro-esophageal reflux disease without esophagitis; G47.30 Sleep apnea, unspecified; T45.1X5A Adverse effect of antineoplastic and immunosuppressive drugs, initial encounter; T36.8X5A Adverse effect of other systemic antibiotics, initial encounter; Z90.710 Acquired absence of both cervix and uterus; Z90.49 Acquired absence of other specified parts of digestive tract; Z98.890 Other specified postprocedural states; Z79.890 Hormone replacement therapy; Z79.899 Other long term (current) drug therapy; Z78.1 Physical restraint status
CPT/HCPCS: 31500; 36415; 36430; 36600; 71045; 74018; 76770; 80048; 80053; 80202; 81001; 82140; 82570; 82728; 82803; 82962; 83605; 83690; 83735; 83880; 84100; 84132; 84145; 84300; 84484; 85014; 85018; 85025; 85379; 85610; 86140; 86850; 86900; 86901; 86922; 87040; 93005; 94002; 94640; 94668; 94760; C9113; C9399; J0610; J0692; J1100; J1160; J1170; J1265; J1650; J1940; J2250; J2270; J2405; J2930; J3010; J3370; J7030; J7040; J7050; J7060; J7070; J7120; J7131; P9016; P9046; P9047; U0002